=== PATIENT | male | born 1985 | race Caucasian/White ===

== ENCOUNTER 2017-08-06 10:22 | Emergency (ER) | payer OTHER ==
[2017-08-06] MEDS: IBUPROFEN 800 MG TABLET. PO (11:14)
== END 2017-08-06 12:00 | disposition home or self-care (01) ==
LOC: ER 10:22
DX: S52.202A Unspecified fracture of shaft of left ulna, initial encounter for closed fracture (principal); F12.10 Cannabis abuse, uncomplicated; W01.0XXA Fall on same level from slipping, tripping and stumbling without subsequent striking against object, initial encounter; Y93.89 Activity, other specified; Y99.8 Other external cause status; Y92.89 Other specified places as the place of occurrence of the external cause
CPT/HCPCS: 29125; 73100; 99284-25